=== PATIENT | male | born 1950 | race Hispanic/Latino ===

== ENCOUNTER 2020-06-05 23:04 | Inpatient (IN) | payer OTHER ==
[~2020-06-05] VITALS: Ht 165.1 cm; Wt 81.5 kg
[~2020-06-05 23:04] MED LIST: FENO145T26 PO; GLIP10TA19 PO; INVOK100TB PO; METF-444 PO; SIMV-46 PO
[2020-06-06] MEDS ORDERED: ACETAMINOPHEN EXTRA STRENGTH 500 MG TABLET ONE (00:05)
[2020-06-06 00:06] LABS: BASOPHILS % (AUTO) 0.2 % (0.0-5.0); EOSINOPHILS % (AUTO) 0.9 % (0.0-8.0); HEMATOCRIT 45.2 % (42-54); LYMPHOCYTES % (AUTO) 3.8 % (21.0-51.0); MEAN CORPUSCULAR HEMOGLOBIN 30.4 pg (27.0-33.0); MEAN CORPUSCULAR HGB CONC 34.1 g/dL (32.0-36.0); MEAN CORPUSCULAR VOLUME 89.3 fL (79-99); MONOCYTES % (AUTO) 4.7 % (3.0-13.0); NEUTROPHILS % (AUTO) 89.7 % (40.0-77.0); PLATELET COUNT (AUTO) 341 K/uL (130-400); RED BLOOD CELL COUNT(AUTO) 5.06 MIL/uL (4.50-6.20); RED CELL DISTRIBUTION WIDTH 13.2 % (11.0-15.5); WHITE BLOOD COUNT (AUTO) 14.6 K/uL (4.8-10.8)
[2020-06-06 00:22] LABS: INR 1.03 (0.85-1.15); PARTIAL THROMBOPLASTIN TIME 37.2 SEC (26.3-35.5); PROTHROMBIN TIME 11.1 SEC (9.6-11.6)
[2020-06-06 00:38] LABS: CARBON DIOXIDE 25 mmol/L (21-32); CHLORIDE 93 mmol/L (101-111); CREATININE 1.1 mg/dL (0.5-1.5); GLOMERULAR FILTR. RATE CALC 71 mL/min (>60); GLUCOSE,RANDOM 162 mg/dL (70-105); POTASSIUM 4.2 mmol/L (3.5-5.1); SODIUM SERUM 131 mmol/L (136-145); UREA NITROGEN, BLOOD 28 mg/dL (7-18)
[2020-06-06 01:05] LABS: ALANINE AMINOTRANSFERASE 125 U/L (12-78); ASPARTATE AMINOTRANSFERASE 108 U/L (10-37); CREATINE KINASE, TOTAL 70 U/L (21-232); MYOGLOBIN 74 ng/mL (10-92); TOTAL PROTEIN, SERUM 8.4 g/dL (6.0-8.3); TROPONIN I < 0.04 ng/mL (0.00-0.06)
[2020-06-06] MEDS ORDERED: ALBUTEROL INHALER 90MCG/INH IH PRN (01:30)
[2020-06-06 01:40] LABS: ALBUMIN 2.8 g/dL (3.5-5.0)
[2020-06-06] MEDS ORDERED: ACETAMINOPHEN 325 MG TAB PO PRN ×2 (01:45)
[2020-06-06] MEDS ORDERED: NITROGLYCERIN 0.4 MG SL TAB SL PRN (01:45)
[2020-06-06] MEDS ORDERED: DEXTROSE 50%-WATER 50 ML DISP.SYRIN IV PRN (01:45)
[2020-06-06] MEDS ORDERED: ERGOCALCIFEROL (VITAMIN D2) 50,000 UNIT CAPSULE PO ONE (01:45)
[2020-06-06] MEDS ORDERED: DIPHENHYDRAMINE HCL 25 MG CAPSULE PO PRN (01:45)
[2020-06-06] MEDS ORDERED: ONDANSETRON HCL 4 MG/2 ML VIAL IV PRN (01:45)
[2020-06-06] MEDS ORDERED: GLUCAGON 1MG KIT 1 MG ML IM PRN (01:45)
[2020-06-06 01:51] LABS: ABG BASE EXCESS -1.6 mmol/L (-2.0-3.0); ABG HCO3 22.2 mmol/L (21.0-28.0); ABG OXYGEN SATURATION 89.6 % (95.0-99.0); ABG PCO2 35 mmHg (35-48)
[2020-06-06 02:17] LABS: MAGNESIUM 2.6 mg/dL (1.80-2.40)
[2020-06-06 04:08] VITALS: BP 123/75
[2020-06-06] MEDS ORDERED: AZITHROMYCIN 500MG+NS 250ML 250 ML IV ONE (05:16)
[2020-06-06] MEDS ORDERED: ALBUTEROL INHALER 90MCG/INH IH ONE (05:16)
[2020-06-06] MEDS ORDERED: CEFTRIAXONE SODIUM 1 GM ONE (05:16)
[2020-06-06] MEDS: AZITHROMYCIN 500MG+NS 250ML 250 ML IV SCH (05:30)
[2020-06-06] MEDS: ALBUTEROL INHALER 90MCG/INH IH SCH (05:30)
[2020-06-06] MEDS: CEFTRIAXONE SODIUM 1 GM IV SCH (05:30)
[2020-06-06] MEDS ORDERED: IOHEXOL 350 MG/ML 100ML INFUS..BTL IV ONE (07:06)
[2020-06-06] MEDS ORDERED: INSULIN HUMULIN R 100 UNIT/ML 3ML SQ SCH (07:30)
[2020-06-06] MEDS ORDERED: METHYLPREDNISOLONE SOD SUCC 40MG/ML 1ML ONE ×3 (07:56→20:48)
[2020-06-06] MEDS ORDERED: ENOXAPARIN SODIUM 40 MG/0.4 ML SYRINGE SQ ONE (07:57)
[2020-06-06] MEDS ORDERED: ERGOCALCIFEROL (VITAMIN D2) 50,000 UNIT CAPSULE ONE (07:57)
[2020-06-06] MEDS ORDERED: ZINC SULFATE 220 CAPSULE ONE (07:57)
[2020-06-06] MEDS ORDERED: ASCORBIC ACID 500 MG TAB ONE (07:57)
[2020-06-06 07:59] LABS: HEMATOCRIT 44.5 % (42-54); MEAN CORPUSCULAR HEMOGLOBIN 30.2 pg (27.0-33.0); MEAN CORPUSCULAR HGB CONC 33.7 g/dL (32.0-36.0); MEAN CORPUSCULAR VOLUME 89.5 fL (79-99); PLATELET COUNT (AUTO) 314 K/uL (130-400); RED BLOOD CELL COUNT(AUTO) 4.97 MIL/uL (4.50-6.20); RED CELL DISTRIBUTION WIDTH 13.3 % (11.0-15.5); WHITE BLOOD COUNT (AUTO) 13.1 K/uL (4.8-10.8)
[2020-06-06 08:15] LABS: BILIRUBIN,TOTAL 1.6 mg/dL (0.2-1.0); POTASSIUM 4.4 mmol/L (3.5-5.1); TOTAL PROTEIN, SERUM 7.9 g/dL (6.0-8.3)
[2020-06-06 08:49] LABS: ALBUMIN 2.4 g/dL (3.5-5.0)
[2020-06-06] MEDS ORDERED: ENOXAPARIN SODIUM 40 MG/0.4 ML SYRINGE SQ SCH (09:00)
[2020-06-06 09:34] LABS: LYMPHOCYTES % (MANUAL) 5 % (22-44); MAN.DIFF COMMENT-IMPRESSION MANUAL DIFFERENTIAL; MONOCYTES % (MANUAL) 3 % (2-9); SEGMENTED NEUTROPHILS % 92 % (40-70)
[2020-06-06 09:35] LABS: PLATELET MORPHOLOGY COMMENT ADEQUATE
[2020-06-06] MEDS ORDERED: AZIT250T9 PO (10:43)
--- NOTE | 2020-06-06 12:00 | NUR ---
CALL TO SPOUSE FOR DC PLANNING- LIVES W [place] AND SON , SON PROVIDES DRIVING. PATIENT USUALLY ACTIV E, INDPENDENT, NO DME, SPOUSE STATES BORROWED A WHEELCHAIR YESTERDAY BECUASE PATIENT TOO WEAK TO GET TO THE CAR, FOLLOW W DR. BALL REGULARLY Q 3 MOS, DCP IS HOME Addendum: 06/06/20 at 1929 by RASHAD DHILLON RN CM Amended: Links added.
[2020-06-06 16:40] LABS: APPEARANCE,URINE Clear (CLEAR); BILIRUBIN,URINE Negative (NEGATIVE); COLOR,URINE Dark Yellow (YELLOW); GLUCOSE, URINE (UA) >=1000 mg/dL (NEGATIVE); KETONES,URINE 15 mg/dL (NEGATIVE); LEUKOCYTE ESTERASE ,URINE Negative (NEGATIVE); NITRATE,URINE Negative (NEGATIVE); OCCULT BLOOD,URINE Negative (NEGATIVE); PROTEIN,URINE POS 1+ mg/dL (NEGATIVE)
[2020-06-06 16:57] LABS: BACTERIA,URINE Few /HPF (None Seen); MUCUS,URINE Few LPF (None Seen); SQUAMOUS EPITHELIAL CELL,UR Few /HPF (0-2)
[2020-06-06] MEDS ORDERED: ENOXAPARIN SODIUM 60 MG/0.6 ML SQ ONE (20:48)
[2020-06-06] MEDS ORDERED: ENOXAPARIN SODIUM 30 MG/0.3 ML SQ ONE (20:49)
[2020-06-06] MEDS ORDERED: INSULIN HUMULIN R 100 UNIT/ML 3ML ONE (20:50)
[2020-06-07 04:18] LABS: BASOPHILS % (AUTO) 0.1 % (0.0-5.0); HEMATOCRIT 43.9 % (42-54); LYMPHOCYTES % (AUTO) 3.7 % (21.0-51.0); MEAN CORPUSCULAR HEMOGLOBIN 30.2 pg (27.0-33.0); MEAN CORPUSCULAR HGB CONC 33.5 g/dL (32.0-36.0); MEAN CORPUSCULAR VOLUME 90.1 fL (79-99); MONOCYTES % (AUTO) 4.4 % (3.0-13.0); NEUTROPHILS % (AUTO) 90.8 % (40.0-77.0); PLATELET COUNT (AUTO) 372 K/uL (130-400); RED BLOOD CELL COUNT(AUTO) 4.87 MIL/uL (4.50-6.20); RED CELL DISTRIBUTION WIDTH 13.2 % (11.0-15.5); WHITE BLOOD COUNT (AUTO) 14.1 K/uL (4.8-10.8)
[2020-06-07 04:28] LABS: POTASSIUM 4.5 mmol/L (3.5-5.1)
[2020-06-07 04:32] LABS: ALBUMIN 2.7 g/dL (3.5-5.0); TOTAL PROTEIN, SERUM 7.2 g/dL (6.0-8.3)
[2020-06-07] MEDS ORDERED: AZITHROMYCIN 500MG+NS 250ML 250 ML IV ONE (05:08)
[2020-06-07] MEDS ORDERED: CEFTRIAXONE SODIUM 1 GM ONE (05:09)
[2020-06-07] MEDS ORDERED: METHYLPREDNISOLONE SOD SUCC 40MG/ML 1ML ONE ×4 (05:09→22:58)
[2020-06-07] MEDS: INSULIN HUMULIN R 100 UNIT/ML 3ML SQ SCH ×4 (07:30→21:00)
--- NOTE | 2020-06-07 07:30 | NUR ---
ASSUMED CARE OF PATIENT RECEIVED REPORT FROM Rafaela HE RN. PT STABLE, AAO X 3, FOLLOWS COMMANDS, NOTED TO GET SOB ON EXERTION WHILE TALKING AND MOVING AROUND IN THE BED. BBS DIMINISHED TO ALL LOBES. O2 @ 11L VIA NON-REBREATHER MASK, O2 SATS 94 %, WITH TACHYPNEA NOTED, INCREASED O2 TO 15 LITERS, PT C/O GBW. DENIES ANY PAIN. CALL SAHU PLACED IN REACH. SIDE RAILS UP X 2. BED IN LOWEST POSITION.
[2020-06-07 08:00] VITALS: BP 133/72
[2020-06-07] MEDS ORDERED: ZINC SULFATE 220 CAPSULE ONE (08:09)
[2020-06-07] MEDS ORDERED: ENOXAPARIN SODIUM 100 MG/1 ML SQ ONE ×2 (08:11→22:58)
[2020-06-07] MEDS ORDERED: ASCORBIC ACID 500 MG TAB ONE (08:11)
[2020-06-07] MEDS: ALBUTEROL INHALER 90MCG/INH IH SCH ×4 (08:30→21:30)
[2020-06-07] MEDS: METHYLPREDNISOLONE SOD SUCC 40MG/ML 1ML IVP SCH ×3 (08:30→21:00)
[2020-06-07] MEDS: ENOXAPARIN SODIUM 100 MG/1 ML SQ SCH ×2 (08:30→21:00)
[2020-06-07] MEDS: ZINC SULFATE 220 CAPSULE PO SCH (08:30)
[2020-06-07] MEDS: ASCORBIC ACID 500 MG TAB PO SCH (08:30)
[2020-06-07] MEDS ORDERED: INSULIN HUMULIN R 100 UNIT/ML 3ML ONE ×2 (11:27→18:10)
[2020-06-07] MEDS ORDERED: ERGOCALCIFEROL (VITAMIN D2) 50,000 UNIT CAPSULE PO SCH (11:30)
--- NOTE | 2020-06-07 11:30 | NUR ---
O2 SATS STABLE O2 SATS STABLE AT 95% WITH O2 @ 15L VIA NONREBREATHER MASK. PT TOLERATING WELL.
[2020-06-07 12:00] VITALS: BP 124/68
[2020-06-07 16:30] VITALS: BP 131/73
[2020-06-08] MEDS: ALBUTEROL INHALER 90MCG/INH IH SCH ×6 (01:30→21:30)
[2020-06-08] MEDS: AZITHROMYCIN 500MG+NS 250ML 250 ML IV SCH (01:45)
[2020-06-08] MEDS: CEFTRIAXONE SODIUM 1 GM IV SCH (01:45)
[2020-06-08] MEDS ORDERED: CEFTRIAXONE SODIUM 1 GM ONE (04:53)
[2020-06-08] MEDS ORDERED: AZITHROMYCIN 500MG+NS 250ML 250 ML IV ONE (04:53)
[2020-06-08 07:05] LABS: BASOPHILS % (AUTO) 0.3 % (0.0-5.0); HEMATOCRIT 46.4 % (42-54); LYMPHOCYTES % (AUTO) 5.5 % (21.0-51.0); MEAN CORPUSCULAR HEMOGLOBIN 30.3 pg (27.0-33.0); MEAN CORPUSCULAR VOLUME 91.9 fL (79-99); MONOCYTES % (AUTO) 4.5 % (3.0-13.0); NEUTROPHILS % (AUTO) 87.6 % (40.0-77.0); PLATELET COUNT (AUTO) 445 K/uL (130-400); RED BLOOD CELL COUNT(AUTO) 5.05 MIL/uL (4.50-6.20); RED CELL DISTRIBUTION WIDTH 13.5 % (11.0-15.5); WHITE BLOOD COUNT (AUTO) 13.5 K/uL (4.8-10.8)
[2020-06-08 07:27] LABS: ALBUMIN 2.5 g/dL (3.5-5.0); BILIRUBIN,TOTAL 0.7 mg/dL (0.2-1.0); CREATININE 1.1 mg/dL (0.5-1.5); POTASSIUM 5.3 mmol/L (3.5-5.1); TOTAL PROTEIN, SERUM 7.8 g/dL (6.0-8.3)
[2020-06-08] MEDS: INSULIN HUMULIN R 100 UNIT/ML 3ML SQ SCH ×4 (07:30→21:00)
[2020-06-08] MEDS: ZINC SULFATE 220 CAPSULE PO SCH (09:00)
[2020-06-08] MEDS: METHYLPREDNISOLONE SOD SUCC 40MG/ML 1ML IVP SCH ×3 (09:00→21:00)
[2020-06-08] MEDS: ASCORBIC ACID 500 MG TAB PO SCH (09:00)
[2020-06-08] MEDS: ENOXAPARIN SODIUM 100 MG/1 ML SQ SCH ×2 (09:00→21:00)
[2020-06-08] MEDS ORDERED: ZINC SULFATE 220 CAPSULE ONE (09:33)
[2020-06-08] MEDS ORDERED: ASCORBIC ACID 500 MG TAB ONE (09:33)
[2020-06-08] MEDS ORDERED: ENOXAPARIN SODIUM 100 MG/1 ML SQ ONE ×2 (09:35→21:00)
[2020-06-08] MEDS ORDERED: METHYLPREDNISOLONE SOD SUCC 40MG/ML 1ML ONE (09:35)
[2020-06-08] MEDS ORDERED: INSULIN HUMULIN R 100 UNIT/ML 3ML ONE ×3 (09:36→17:02)
[2020-06-08 09:38] LABS: CRP QUANTITATIVE 241.9 mg/L (0.00-9.0)
[2020-06-08] MEDS ORDERED: GUAIFENESIN-DM 200/20 MG 10 ML ONE (21:55)
[2020-06-09] MEDS ORDERED: METHYLPREDNISOLONE SOD SUCC 40MG/ML 1ML ONE ×3 (01:01→21:31)
[2020-06-09] MEDS: ALBUTEROL INHALER 90MCG/INH IH SCH ×6 (01:30→21:30)
[2020-06-09] MEDS: CEFTRIAXONE SODIUM 1 GM IV SCH (01:45)
[2020-06-09] MEDS: AZITHROMYCIN 500MG+NS 250ML 250 ML IV SCH (01:45)
[2020-06-09] MEDS ORDERED: AZITHROMYCIN 500MG+NS 250ML 250 ML IV ONE (05:12)
[2020-06-09] MEDS ORDERED: CEFTRIAXONE SODIUM 1 GM ONE (05:13)
[2020-06-09] MEDS: INSULIN HUMULIN R 100 UNIT/ML 3ML SQ SCH ×4 (07:30→21:00)
[2020-06-09 07:42] LABS: BASOPHILS % (AUTO) 0.6 % (0.0-5.0); HEMATOCRIT 43.9 % (42-54); LYMPHOCYTES % (AUTO) 4.5 % (21.0-51.0); MEAN CORPUSCULAR HEMOGLOBIN 30.9 pg (27.0-33.0); MEAN CORPUSCULAR HGB CONC 33.3 g/dL (32.0-36.0); MEAN CORPUSCULAR VOLUME 92.8 fL (79-99); MONOCYTES % (AUTO) 4.4 % (3.0-13.0); NEUTROPHILS % (AUTO) 87.1 % (40.0-77.0); PLATELET COUNT (AUTO) 445 K/uL (130-400); RED BLOOD CELL COUNT(AUTO) 4.73 MIL/uL (4.50-6.20); RED CELL DISTRIBUTION WIDTH 13.2 % (11.0-15.5)
[2020-06-09 08:06] LABS: ALBUMIN 2.4 g/dL (3.5-5.0); BILIRUBIN,TOTAL 0.6 mg/dL (0.2-1.0); CREATININE 0.8 mg/dL (0.5-1.5); CRP QUANTITATIVE 100.6 mg/L (0.00-9.0); POTASSIUM 4.5 mmol/L (3.5-5.1)
[2020-06-09] MEDS: METHYLPREDNISOLONE SOD SUCC 40MG/ML 1ML IVP SCH ×3 (09:00→21:00)
[2020-06-09] MEDS: ASCORBIC ACID 500 MG TAB PO SCH (09:00)
[2020-06-09] MEDS: ENOXAPARIN SODIUM 100 MG/1 ML SQ SCH ×2 (09:00→21:00)
[2020-06-09] MEDS: ZINC SULFATE 220 CAPSULE PO SCH (09:00)
[2020-06-09] MEDS ORDERED: ENOXAPARIN SODIUM 100 MG/1 ML SQ ONE (09:03)
[2020-06-09] MEDS ORDERED: ALBUTEROL INHALER 90MCG/INH IH ONE (09:05)
[2020-06-09] MEDS ORDERED: ZINC SULFATE 220 CAPSULE ONE (09:06)
[2020-06-09] MEDS ORDERED: ASCORBIC ACID 500 MG TAB ONE (09:10)
[2020-06-09] MEDS ORDERED: INSULIN HUMULIN R 100 UNIT/ML 3ML ONE ×3 (13:10→22:23)
[2020-06-10] VITALS (7 sets, daily range): BP systolic 118–142; BP diastolic 73–85
--- NOTE | 2020-06-10 01:05 | NUR ---
Admission to 3rd Floor Received pt to [facility] via stretcher, accompanied by ED staff. Pt alert and oriented, no s/s of acute distress noted. Swiss speaking male, who understands Lao very little. Denies CP, c/o SOB on exertion. Sats at 87% on 3L of O2 via NC. Skin dry and intact. Pt is able to ambulate slowly and with visual monitoring for safety. Non-skid socks on. Call light within reach. Personal cell phone in use. Plan of care explained along with breathing techniques and completion of antibiotic use. Will continue to monitor.
[2020-06-10] MEDS: CEFTRIAXONE SODIUM 1 GM IV SCH ×2 (01:25→01:45)
[2020-06-10] MEDS: ALBUTEROL INHALER 90MCG/INH IH SCH ×6 (01:30→20:01)
[2020-06-10] MEDS: AZITHROMYCIN 500MG+NS 250ML 250 ML IV SCH (01:45)
[2020-06-10 05:19] LABS: BASOPHILS % (AUTO) 0.8 % (0.0-5.0); EOSINOPHILS % (AUTO) 0.1 % (0.0-8.0); HEMATOCRIT 42.7 % (42-54); LYMPHOCYTES % (AUTO) 6.7 % (21.0-51.0); MEAN CORPUSCULAR HEMOGLOBIN 30.2 pg (27.0-33.0); MEAN CORPUSCULAR HGB CONC 32.8 g/dL (32.0-36.0); MONOCYTES % (AUTO) 4.3 % (3.0-13.0); NEUTROPHILS % (AUTO) 83.2 % (40.0-77.0); PLATELET COUNT (AUTO) 477 K/uL (130-400); RED BLOOD CELL COUNT(AUTO) 4.64 MIL/uL (4.50-6.20); RED CELL DISTRIBUTION WIDTH 13.2 % (11.0-15.5); WHITE BLOOD COUNT (AUTO) 10.6 K/uL (4.8-10.8)
[2020-06-10 05:36] LABS: CREATININE 0.9 mg/dL (0.5-1.5); POTASSIUM 4.5 mmol/L (3.5-5.1)
[2020-06-10] MEDS: INSULIN HUMULIN R 100 UNIT/ML 3ML SQ SCH ×4 (07:30→21:35)
[2020-06-10] MEDS: ZINC SULFATE 220 CAPSULE PO SCH (09:16)
[2020-06-10] MEDS: ASCORBIC ACID 500 MG TAB PO SCH (09:16)
[2020-06-10] MEDS: METHYLPREDNISOLONE SOD SUCC 40MG/ML 1ML IVP SCH ×3 (09:16→20:00)
[2020-06-10] MEDS: ENOXAPARIN SODIUM 100 MG/1 ML SQ SCH ×2 (09:17→20:00)
--- NOTE | 2020-06-10 10:01 | NUR ---
CHART CHECK COMPLETED. Pt IS A 69 Y.O. MALE ADMITTED SECONDARY TO SEVERE SEPSIS, CAP, PUI COVID. Pt HAS A PAST MEDICAL HISTORY SIGNIFICANT FOR DMII, HYPERLIPIDEMIA. Pt CURRENTLY ON HEART HEALTHY DIET, REGULAR TEXTURE, THIN LIQUIDS. PLEASE REQUEST FORMAL SKILLED SPEECH/SWALLOW EVALUATION IF Pt PRESENTS WITH +S/S OF ASPIRATION SUCH COUGH RESPONSE,THROAT CLEAR OR WET VOCAL QUALITY. Addendum: 06/10/20 at 1008 by JUNE MAZARIEGOS, [facility] Amended: Links added.
[2020-06-11] MEDS: CEFTRIAXONE SODIUM 1 GM IV SCH (01:35)
[2020-06-11] MEDS: AZITHROMYCIN 500MG+NS 250ML 250 ML IV SCH (01:35)
[2020-06-11] MEDS: ALBUTEROL INHALER 90MCG/INH IH SCH ×6 (01:36→22:25)
--- NOTE | 2020-06-11 02:14 | NUR ---
02 Pt remains on 02 at 4lpm via NC,sat low 90's.Pt denies sob,respirations unlabored.Encouraged to turn,cough and deep breathe,verbalized understanding.
[2020-06-11 04:00] VITALS: BP 113/67
[2020-06-11] MEDS: INSULIN HUMULIN R 100 UNIT/ML 3ML SQ SCH ×4 (06:37→20:13)
[2020-06-11 07:41] LABS: BASOPHILS % (AUTO) 0.6 % (0.0-5.0); EOSINOPHILS % (AUTO) 0.1 % (0.0-8.0); HEMATOCRIT 43.8 % (42-54); LYMPHOCYTES % (AUTO) 9.3 % (21.0-51.0); MEAN CORPUSCULAR HEMOGLOBIN 29.8 pg (27.0-33.0); MEAN CORPUSCULAR HGB CONC 32.4 g/dL (32.0-36.0); MONOCYTES % (AUTO) 4.4 % (3.0-13.0); NEUTROPHILS % (AUTO) 79.9 % (40.0-77.0); PLATELET COUNT (AUTO) 485 K/uL (130-400); RED BLOOD CELL COUNT(AUTO) 4.76 MIL/uL (4.50-6.20); WHITE BLOOD COUNT (AUTO) 12.2 K/uL (4.8-10.8)
[2020-06-11 08:07] LABS: ALBUMIN 2.3 g/dL (3.5-5.0); BILIRUBIN,TOTAL 0.5 mg/dL (0.2-1.0); CREATININE 0.8 mg/dL (0.5-1.5); CRP QUANTITATIVE 35.5 mg/L (0.00-9.0); POTASSIUM 4.1 mmol/L (3.5-5.1); TOTAL PROTEIN, SERUM 6.7 g/dL (6.0-8.3)
[2020-06-11 09:04] VITALS: BP 127/76
[2020-06-11] MEDS: ASCORBIC ACID 500 MG TAB PO SCH (09:19)
[2020-06-11] MEDS: ZINC SULFATE 220 CAPSULE PO SCH (09:19)
[2020-06-11] MEDS: METHYLPREDNISOLONE SOD SUCC 40MG/ML 1ML IVP SCH ×3 (09:19→20:10)
[2020-06-11] MEDS: ENOXAPARIN SODIUM 100 MG/1 ML SQ SCH ×2 (09:21→20:11)
[2020-06-11 12:00] VITALS: BP 111/74
--- NOTE | 2020-06-11 16:10 | NUR ---
CM Note: HCD pending O2 approval and delivery CM spoke to pt discussed qualified for home O2, will arranged DME for dc, pt agreeable, telephone consent GABY for [facility] and Any DME company that will approve. Faxed script and clinicals to [facility], confirmation received. Pt pending approval and portable O2 to be delivered in pt's room. Primary nurse aware. CM to cont to follow up.
[2020-06-11 16:38] VITALS: BP 121/74
[2020-06-11 20:34] VITALS: BP 120/70
[2020-06-12] VITALS: BP 125/70
[2020-06-12] MEDS: CEFTRIAXONE SODIUM 1 GM IV SCH (01:59)
[2020-06-12] MEDS: ALBUTEROL INHALER 90MCG/INH IH SCH ×6 (01:59→21:06)
[2020-06-12] MEDS: AZITHROMYCIN 500MG+NS 250ML 250 ML IV SCH (01:59)
[2020-06-12] MEDS: INSULIN HUMULIN R 100 UNIT/ML 3ML SQ SCH ×4 (06:26→21:00)
[2020-06-12 06:44] LABS: BASOPHILS % (AUTO) 0.4 % (0.0-5.0); HEMATOCRIT 43.7 % (42-54); LYMPHOCYTES % (AUTO) 6.4 % (21.0-51.0); MEAN CORPUSCULAR HEMOGLOBIN 30.2 pg (27.0-33.0); MEAN CORPUSCULAR HGB CONC 33.2 g/dL (32.0-36.0); MONOCYTES % (AUTO) 3.1 % (3.0-13.0); NEUTROPHILS % (AUTO) 84.5 % (40.0-77.0); PLATELET COUNT (AUTO) 496 K/uL (130-400); WHITE BLOOD COUNT (AUTO) 12.2 K/uL (4.8-10.8)
[2020-06-12 07:29] LABS: ALBUMIN 2.4 g/dL (3.5-5.0); BILIRUBIN,TOTAL 0.5 mg/dL (0.2-1.0); CREATININE 0.9 mg/dL (0.5-1.5); POTASSIUM 4.1 mmol/L (3.5-5.1); TOTAL PROTEIN, SERUM 6.8 g/dL (6.0-8.3)
[2020-06-12 08:33] VITALS: BP 126/75
[2020-06-12] MEDS: METHYLPREDNISOLONE SOD SUCC 40MG/ML 1ML IVP SCH ×3 (08:52→20:58)
[2020-06-12] MEDS: ZINC SULFATE 220 CAPSULE PO SCH (08:53)
[2020-06-12] MEDS: ASCORBIC ACID 500 MG TAB PO SCH (08:53)
[2020-06-12] MEDS: ENOXAPARIN SODIUM 100 MG/1 ML SQ SCH (08:54)
--- NOTE | 2020-06-12 10:00 | NUR ---
PT IS NOW ON 3.5L VIA N/C, NO COMPLAINTS OF SOB. PT IN NO APPARENT DISTRESS' STATING AT 94% ON 2L O2. WILL CONTINUE TO MONITOR PT.
[2020-06-12 11:16] VITALS: BP 128/89
--- NOTE | 2020-06-12 14:00 | NUR ---
NIIMSHA Note: HCD approval and delivery CM verified pt has approval for home O2 w/[facility], at this time only able to deliver concentrator at pt's residence, currently ran out of portable, will have portable delivered as soon as available. NIMISHA spoke to Nickie RT Director, will be able to lend portable O2 so that pt can safely dc home today, family to return portable to ED once pt get situated with concentrator at home. Nickie to drop off portable in pt's room today in pt room. Primary nurse Rosa and charge nurse Divina aware. Pt safe to dc via private car once MD clear. CM to cont to follow up.
[2020-06-12] MEDS ORDERED: AZIT500T2 PO (16:09)
[2020-06-12] MEDS ORDERED: DEXA6TAB PO (16:09)
[2020-06-12 16:34] VITALS: BP 141/84
--- NOTE | 2020-06-12 17:30 | NUR ---
SPOKE TO PT ABOUT DISCHARGE HOME. PT STATED NOT FEELING WELL AND WOULD NEED TO MAKE ARRANGEMENTS FOR FIXED INCOME PORTFOLIO MANAGER SINCE THEIR SON IS ALSO IN THE HOSPITAL DUE TO COVID. PREFERS TO FIXED INCOME PORTFOLIO MANAGER PT TOMORROW WHEN SHE HAS MADE ARRANGEMENTS. CHARGE NURSE TONIE MADE AWARE. SPOKE WITH NIKI BOSE ABOUT THE SITUATION AND APPROVED DC HOME FOR TOMORROW WHEN WAS AVAILABLE IN AM.
[2020-06-12 20:24] VITALS: BP 117/69
[2020-06-12] MEDS ORDERED: DOCUSATE SODIUM 100 MG CAP PO SCH (21:00)
[2020-06-13 00:01] VITALS: BP 125/76
[2020-06-13] MEDS: CEFTRIAXONE SODIUM 1 GM IV SCH (02:18)
[2020-06-13] MEDS: AZITHROMYCIN 500MG+NS 250ML 250 ML IV SCH (02:18)
[2020-06-13] MEDS: ALBUTEROL INHALER 90MCG/INH IH SCH ×4 (02:19→13:59)
[2020-06-13 04:29] VITALS: BP 123/75
[2020-06-13] MEDS: INSULIN HUMULIN R 100 UNIT/ML 3ML SQ SCH ×2 (06:27→13:58)
[2020-06-13 06:58] LABS: BASOPHILS % (AUTO) 0.4 % (0.0-5.0); LYMPHOCYTES % (AUTO) 6.5 % (21.0-51.0); MEAN CORPUSCULAR HGB CONC 33.3 g/dL (32.0-36.0); MEAN CORPUSCULAR VOLUME 90.3 fL (79-99); MONOCYTES % (AUTO) 4.1 % (3.0-13.0); PLATELET COUNT (AUTO) 493 K/uL (130-400); RED BLOOD CELL COUNT(AUTO) 4.76 MIL/uL (4.50-6.20); WHITE BLOOD COUNT (AUTO) 13.3 K/uL (4.8-10.8)
[2020-06-13 07:16] LABS: ALBUMIN 2.4 g/dL (3.5-5.0); BILIRUBIN,TOTAL 0.5 mg/dL (0.2-1.0); CREATININE 0.8 mg/dL (0.5-1.5); CRP QUANTITATIVE 12.7 mg/L (0.00-9.0); POTASSIUM 4.6 mmol/L (3.5-5.1); TOTAL PROTEIN, SERUM 6.4 g/dL (6.0-8.3)
[2020-06-13 08:35] VITALS: BP 129/76
[2020-06-13] MEDS: ZINC SULFATE 220 CAPSULE PO SCH (08:42)
[2020-06-13] MEDS: ASCORBIC ACID 500 MG TAB PO SCH (08:42)
[2020-06-13] MEDS: METHYLPREDNISOLONE SOD SUCC 40MG/ML 1ML IVP SCH (08:42)
[2020-06-13] MEDS ORDERED: ENOXAPARIN SODIUM 40 MG/0.4 ML SYRINGE SQ SCH (09:00)
--- NOTE | 2020-06-13 11:00 | NUR ---
cm note call made to pts , and states that both portable and concentrator were delivered to her already, updated primary nurse Pedro.
[2020-06-13 11:18] VITALS: BP 132/79
--- NOTE | 2020-06-13 14:41 | NUR ---
PT D/C HOME WITH 02 TANK DISCHARGE INSTRUCTIONS GIVEN USING TEACH BACK TECHNIQUE RE; NEW MEDS HOMED MEDS, S/S TO WATCH FOR AND WHEN TO CALL MD OR 911. Follow up with Dr. Familia Fung in 3 to 5 days. Follow up with pulmonoligist in 7 days call to set up your own appointment. Make sure there is no candles, gas stoves or smoking inside the house which may cause a fire when oxygen is in use. call your primary doctor if fevers, short of breat or cough worsens. Could mean you have an infection. Call 911 if shortness of breath or chest pain does not resolve with rest. IV OUT INTACT, NO BLEEDING, DENIES ANY SOB AT THIS TIME, NOR QUESTIONS RE; D/C PLAN. AAOX3, FAMILY DOWN IN ER ENTRANCE. OXYGEN TANK BROUGHT BY FAMILY WHICH IS ALREADY IN USE BY PATIENT. TELE REMOVED BY GROCERY SUPERVISOR.
== END 2020-06-13 15:10 | disposition home or self-care (01) | DRG 871 ==
LOC: EDH 23:04 → EDHIP 06-06 01:39 → 3AH 06-10 00:05
PROVIDERS: ADMIT Internal Medicine; ATTEND Internal Medicine
DX: A41.9 Sepsis, unspecified organism (principal); U07.1 COVID-19; J96.01 Acute respiratory failure with hypoxia; J12.89 Other viral pneumonia; E87.1 Hypo-osmolality and hyponatremia; E78.5 Hyperlipidemia, unspecified; K76.0 Fatty (change of) liver, not elsewhere classified; E11.65 Type 2 diabetes mellitus with hyperglycemia; I10 Essential (primary) hypertension; E66.9 Obesity, unspecified; E87.5 Hyperkalemia; B96.89 Other specified bacterial agents as the cause of diseases classified elsewhere; Z68.29 Body mass index [BMI] 29.0-29.9, adult; Z83.3 Family history of diabetes mellitus; R65.20 Severe sepsis without septic shock
CPT/HCPCS: 36415; 36600; 71045; 71275; 76705; 80048; 80053; 81001; 82550; 82728; 82803; 82948; 83605; 83615; 83735; 83874; 84145; 84484; 85025; 85378; 85610; 85730; 86140; 86900; 86901; 87040; 87077; 87186; 87880; 93005; 93970; 94760; 99291; G0378; J0456; J0696; J1650; J1815; J2920; Q9967; U0003